=== PATIENT | male | born 1970 | race Two or more races ===

== ENCOUNTER 2020-03-06 18:26 | Emergency (ER) | payer SELFPAY ==
[~2020-03-06] VITALS: Ht 170.2 cm; Wt 70.0 kg
[2020-03-06] MEDS ORDERED: SODIUM CHLORIDE 0.9% 1,000 ML IV ONE (19:05)
[2020-03-06] MEDS ORDERED: HALOPERIDOL LACTATE 5MG/ML VIAL IM ONE ×2 (19:15)
[2020-03-06 19:58] LABS: BASOPHILS % 0.1 % (0.0-2.0); EOSINOPHILS % 2.1 % (0.0-5.0); HEMATOCRIT. 47.7 % (42.0-52.0); HEMOGLOBIN. 16.6 g/dL (14.0-18.0); LYMPHOCYTES % 38.1 % (20.0-50.0); MEAN CORPUSCULAR HEMOGLOBIN 32.2 pg (28.0-32.0); MEAN CORPUSCULAR VOLUME 92.7 fL (80.0-94.0); MEAN PLATELET VOLUME 7.2 fl (7.4-10.4); NEUTROPHILS % 53.7 % (40.0-76.0); PLATELET 202 x1000/uL (130-400); RED BLOOD CELL COUNT 5.15 mill/uL (4.7-6.1); RED CELL DISTRIBUTION WIDTH 12.9 % (11.6-14.6)
[2020-03-06 20:04] LABS: CHLORIDE 101 mEq/L (98-107)
[2020-03-06 20:20] LABS: ETHANOL BLOOD 382 mg/dL
[2020-03-06 21:13] LABS: CLARITY URINE CLEAR (CLEAR); COLOR URINE YELLOW (YELLOW); KETONES URINE NEGATIVE (NEGATIVE); LEUKOCYTE ESTERASE URINE NEGATIVE (NEGATIVE); NITRITE URINE NEGATIVE (NEGATIVE); OCCULT BLOOD URINE NEGATIVE (NEGATIVE); PH URINE 6.5 (4.5-8.0); PROTEIN URINE TRACE (NEGATIVE); SPECIFIC GRAVITY URINE 1.005 (1.005-1.030); UROBILINOGEN URINE 0.2 E.U./dL (0.2-1.0)
[2020-03-06 21:27] LABS: *AMPHETAMINES SCREEN URINE NEGATIVE (NEGATIVE); *BARBITURATES SCREEN URINE NEGATIVE (NEGATIVE); *BENZODIAZEPINES SCREEN URINE NEGATIVE (NEGATIVE); *COCAINE SCREEN URINE NEGATIVE (NEGATIVE); CANNABINOID URINE SCREEN NEGATIVE (NEGATIVE); METHADONE URINE SCREEN NEGATIVE (NEGATIVE)
[2020-03-06 21:28] LABS: OPIATES URINE SCREEN NEGATIVE (NEGATIVE); PHENCYCLIDINE URINE SCREEN NEGATIVE (NEGATIVE)
[2020-03-07 01:56] VITALS: BP 120/76
[2020-03-07] MEDS ORDERED: ACETAMINOPHEN 325MG TABLET PO ONE (04:45)
== END 2020-03-07 07:27 | disposition home or self-care (01) ==
LOC: ER 18:26
DX: F10.229 Alcohol dependence with intoxication, unspecified (principal); R45.1 Restlessness and agitation; Z59.0 Homelessness; Z86.19 Personal history of other infectious and parasitic diseases; Y90.8 Blood alcohol level of 240 mg/100 ml or more
CPT/HCPCS: 36415; 80053; 80305; 80320; 81003; 85025; 96372; 99285; J1630; J7030; G0480